=== PATIENT | male | born 1945 | race African-American/Black ===

== ENCOUNTER → 2019-07-31 | Outpatient (CLI) | payer MEDICARE, OTHER ==
[~2019-07-31] MED LIST: ALLOPURINOL300 MG; ATENOLOL50 MG; AVODART0.5 MG; COMBIGAN EYE DRO5 ML OU; DOXAZOSIN MESYLA4 MG; GLIPIZIDE5 MG; LEVOTHYROXINE112 MCG; LISINOPRIL5 MG; LUMIGAN2.5 M1; SIMVASTATIN40 MG PO; VYTORIN 10-801 EACH; ZETIA10 MG PO
--- NOTE | 2019-07-31 09:44 | Diagnostic Imaging Report ---
EXAM: ABDOMEN-1VIEW ([facility]) DATE: 07/31/2019 8:15 AM INDICATION: Gross hematuria COMPARISON: None FINDINGS: Bowel gas pattern is nonspecific but appears nonobstructive. Air and stool noted within the colon. Bowel gas partially secured renal shadows. No radiographically evident renal calculi or other urinary stones are appreciated. There are degenerative changes of the lumbosacral spine and pelvis. No acute osseous abnormalities identified. IMPRESSION: No radiographic evidence renal calculi identified. Signed by: Dr. Dwayne Espinal MD on 07/31/2019 9:40 AM
--- NOTE | 2019-07-31 09:47 | Diagnostic Imaging Report ---
EXAM: US RENAL RETROPERITONEAL COMP DATE: 07/31/2019 8:14 AM INDICATION: Gross hematuria COMPARISON: None FINDINGS: The right kidney is normal in size measuring, 12.6 x 6.5 x 6.0 cm with cortical thickness of 1.9 cm. Cortical echogenicity is mildly increased. There are multiple renal cysts identified, the largest measures 4.9 x 5.2 x 5.3 cm and arises off the inferior pole. There is no evidence for solid renal mass, hydronephrosis, or shadowing calculi. The left kidney is normal in size measuring 14.1 x 7.3 x 6.8 cm with cortical thickness of 1.9 cm. Cortical echogenicity is mildly increased. There are multiple cysts identified, the largest measures 6.6 x 5.3 x 5.7 cm and arises off the mid left kidney. There is no evidence for solid renal mass, hydronephrosis, or shadowing calculi. The partially distended urinary bladder demonstrates no significant abnormalities. Bilateral ureteral jets are noted. Prevoid volume is 71 cc. The prostate is prominent measuring up to 4.9 cm. IMPRESSION: Mildly increased renal cortical echogenicity noted bilaterally which can be seen in the setting of medical renal disease. Bilateral renal cysts. Prostatomegaly. Signed by: Dr. Dwayne Espinal MD on 07/31/2019 9:44 AM
== END ==
LOC: US 07:45
PROVIDERS: ATTEND Urology
DX: N18.9 Chronic kidney disease, unspecified (principal); R31.0 Gross hematuria
CPT/HCPCS: 74018; 76770

== ENCOUNTER → 2019-10-16 | Outpatient (CLI) | payer MEDICARE, OTHER ==
--- NOTE | 2019-10-16 15:37 | Diagnostic Imaging Report ---
EXAM: CT Abdomen and Pelvis WITHOUT intravenous contrast INDICATION: Flank pain, hematuria COMPARISON: [facility] of 07/31/2019, renal ultrasound 07/31/2019 TECHNIQUE: Abdomen and pelvis were scanned utilizing a multidetector helical scanner from the lung base to the pubic symphysis without administration of IV contrast. Coronal and sagittal reformations were obtained. IV CONTRAST: None ORAL CONTRAST: None COMPLICATIONS: None RADIATION DOSE: Total DLP: 860 mGy*cm Dose modulation, iterative reconstruction, and/or weight based adjustment of the mA/kV was utilized to reduce the radiation dose to as low as reasonably achievable. FINDINGS: LOWER THORAX: Coronary artery atherosclerotic calcifications. No focal lung base consolidation. HEPATOBILIARY: No focal liver lesion. Unremarkable gallbladder. SPLEEN: No splenomegaly. PANCREAS: No focal masses or ductal dilatation. ADRENALS: 1.4 cm low-density left adrenal benign adenoma. KIDNEYS/URETERS: Bilateral renal cysts measure up to 6.3 cm on the left and 5.8 cm on the right. 3 mm nonobstructive left lower pole renal calculus. No hydronephrosis or hydroureter. PELVIC ORGANS/BLADDER: The prostate is enlarged, measuring up to 5.3 x 5.1 x 4.7 cm (volume estimate of 67cc). PERITONEUM / RETROPERITONEUM: No free air or fluid. LYMPH NODES: No lymphadenopathy. VESSELS: Scattered atherosclerotic calcifications of the nonaneurysmal abdominal aorta and major branches. GI TRACT: Diverticulosis without CT evidence of diverticulitis. No abnormal bowel thickening. No bowel obstruction. Normal appendix. BONES AND SOFT TISSUES: Mixed lytic and sclerotic appearance of the sacrum for which osseous metastatic disease cannot be excluded. IMPRESSION: 3 mm nonobstructive left lower pole renal calculus. No hydronephrosis or hydroureter. Bilateral renal cysts. Prostatomegaly. Mixed lytic and sclerotic appearance of the sacrum for which osseous metastatic disease cannot be excluded. Signed by: Dago Chin MD on 10/16/2019 3:34 PM
== END ==
LOC: CT 14:37
PROVIDERS: ATTEND Urology
DX: R31.0 Gross hematuria (principal); N23 Unspecified renal colic
CPT/HCPCS: 74176

== ENCOUNTER → 2020-04-10 | Outpatient (CLI) | payer MEDICARE, OTHER | LOC: NM 09:31 | PROVIDERS: ATTEND Urology | DX: N20.0 Calculus of kidney (principal); E29.1 Testicular hypofunction; E05.90 Thyrotoxicosis, unspecified without thyrotoxic crisis or storm | CPT/HCPCS: 74018; 78071; A9500 ==

== ENCOUNTER 2020-05-02 13:14 | Inpatient (IN) | payer MEDICARE, OTHER ==
[~2020-05-02] VITALS: Ht 205.7 cm; Wt 142.9 kg
[~2020-05-02 13:14] MED LIST changes: +ETOMIDATE 2 MG/ML 10 ML INJ IV ONE; +VECURONIUM BROMIDE FOR INJ 20 MG VIAL ONE; +WATER STERILE 10 ML VIAL ONE
[2020-05-02] MEDS ORDERED: ONDANSETRON HCL INJ 2MG/ML 2ML 2 MG/ML VIAL IV PRN (13:45)
[2020-05-02] MEDS ORDERED: MORPHINE SULFATE INJ 4 MG/ML INJ 1ML IV PRN (13:45)
[2020-05-02] MEDS ORDERED: SODIUM CHLORIDE 0.9% 500ML 500 ML IV STA (13:49)
[2020-05-02] MEDS ORDERED: SODIUM CHLORIDE 0.9% 1000ML 1,000 ML IV STA ×2 (13:49)
[2020-05-02 14:14] LABS: BASOPHILS % 0.3 % (0.0-1.0); EOSINOPHILS # (AUTO) 0.1 (0.0-0.4); EOSINOPHILS % 1.5 % (0.0-6.0); HEMATOCRIT 29.6 % (38.2-49.6); HEMOGLOBIN 8.8 g/dL (14.0-18.0); LYMPHOCYTES # (AUTO) 0.9 (1.0-3.2); MEAN CORPUSCULAR HEMOGLOBIN 27.4 pg (28-32); MEAN CORPUSCULAR HGB CONC 29.7 g/dL (31-35); MEAN CORPUSCULAR VOLUME 92.2 fL (81-99); MONOCYTES # (AUTO) 0.5 (0.2-0.8); MONOCYTES % 6.8 % (4.4-11.3); NEUTROPHILS # (AUTO) 6.2 (2.1-6.9); NEUTROPHILS % 78.1 % (38.7-80.0); PLATELET COUNT 182 x10e3/uL (140-360); RED BLOOD COUNT 3.21 x10e6/uL (4.3-5.7); RED CELL DISTRIBUTION WIDTH 15.3 % (11.7-14.4)
[2020-05-02 14:28] LABS: ALBUMIN 3.4 g/dL (3.5-5.0); ALBUMIN/GLOBULIN RATIO 0.9 (0.8-2.0); ANION GAP 18.1 mmol/L (8-16); CALCIUM 8.1 mg/dL (8.4-10.2); CREATININE, SERUM 3.56 mg/dL (0.72-1.25)
[2020-05-02 14:32] LABS: POTASSIUM 6.1 mmol/L (3.5-5.1)
[2020-05-02] MEDS ORDERED: NOREPINEPHRINE INJ 4MG/4ML 8 MG in DEXTROSE 5% 250ML 250 ML IV STA (14:35)
[2020-05-02] MEDS ORDERED: DEXTROSE 50% SYRINGE 50 ML IV STA (14:35)
[2020-05-02] MEDS ORDERED: SOD POLYSTYRENE SULFONATE SUSP 15 GM/60 ML BTL PO ONE (14:45)
[2020-05-02] MEDS ORDERED: NOREPINEPHRINE 8 MG/D5W 250 ML 250 ML IV SCH (14:45)
[2020-05-02] MEDS ORDERED: CALCIUM GLUCONATE 10% INJ 4.65 MEQ in SODIUM CHLORIDE 0.9% 50ML 50 ML IV ONE (14:45)
[2020-05-02] MEDS ORDERED: CALCIUM GLUCONATE 10% INJ 0.465 MEQ/ML VIAL ONE (14:51)
[2020-05-02] MEDS ORDERED: SODIUM BICARBONATE 8.4% SYRING 50 ML ONE (15:00)
[2020-05-02] MEDS ORDERED: INSULIN REGULAR, HUMAN 100 UNIT/1 ML 3ML VIAL ONE (15:00)
[2020-05-05] MEDS ORDERED: EPINEPHRINE HCL SYRINGE ONE (13:16)
== END 2020-05-02 15:29 | disposition expired | DRG 871 ==
LOC: ER 13:40 → ERHOLD 13:47
PROVIDERS: ADMIT Internal Medicine; ATTEND Internal Medicine
PROC: 0BH17EZ Insertion of Endotracheal Airway into Trachea, Via Natural or Artificial Opening (ICD-10-PCS; principal; 2020-05-02)
PROC: 5A1935Z Respiratory Ventilation, Less than 24 Consecutive Hours (ICD-10-PCS; 2020-05-02)
PROC: 5A12012 Performance of Cardiac Output, Single, Manual (ICD-10-PCS; 2020-05-02)
DX: A41.9 Sepsis, unspecified organism (principal); R65.21 Severe sepsis with septic shock; J96.90 Respiratory failure, unspecified, unspecified whether with hypoxia or hypercapnia; N17.9 Acute kidney failure, unspecified; R31.9 Hematuria, unspecified; I46.9 Cardiac arrest, cause unspecified; E87.5 Hyperkalemia
CPT/HCPCS: 36415; 71045; 80053; 83605; 85025; 87040; 92950; 94002; 94003; 99285; J0171; J0610; J1817; J7030; J7040; J7799